=== PATIENT | female | born 2000 | race Two or more races ===

== ENCOUNTER 2023-09-29 10:28 | Emergency (ER) | payer MEDICAID, OTHER ==
[~2023-09-29] VITALS: Ht 162.6 cm; Wt 66.8 kg
[2023-09-29 10:45] VITALS: PULSE 180
[2023-09-29] MEDS: SODIUM CHLORIDE 0.9% 1,000 ML IVB ONE (10:46)
[2023-09-29] MEDS: ADENOSINE 6 MG/2 ML INJ IV ONE ×4 (10:58→10:59)
[2023-09-29 11:23] LABS: Basophils # (auto) 0.1 10 ^3/uL (0-0.2); Basophils % (auto) 0.5 % (0.0-2.0); Eosinophils # (auto) 0.1 10 ^3/uL (0-0.8); Eosinophils % (auto) 0.6 % (0.0-7.0); Hematocrit 38.1 % (36.0-46.0); Hemoglobin 13.1 g/dL (12.2-16.2); Lymphocytes # (auto) 2.7 10 ^3/uL (0.4-5.4); Lymphocytes % (auto) 21.9 % (10.0-50.0); Mean Corpuscular Hemoglobin 32.7 pg (28.0-32.0); Mean Corpuscular Hgb Conc. 34.5 g/dL (32.0-36.0); Mean Corpuscular Volume 94.9 fL (80.0-100.0); Monocytes # (auto) 0.7 10 ^3/uL (0-1.3); Monocytes % (auto) 6.2 % (0.0-12.0); Neutrophils # (auto) 8.6 10 ^3/uL (1.6-8.6); Neutrophils % (auto) 70.8 % (37.0-80.0); Nucleated Red Blood Cells % 0.1 %; Red Blood Cells 4.01 10^6/uL (4.0-5.20); Red Cell Distribution Width 13.4 % (11.8-14.3); White Blood Cell 12.1 10^3/uL (4.4-10.8)
[2023-09-29 12:10] LABS: Alanine Aminotransferase 20 U/L (7-40); Albumin 4.2 g/dL (3.2-4.8); Alkaline Phosphatase 50 U/L (46-116); Anion Gap 7 (5-15); Aspartate Aminotransferase 13 U/L (13-40); Calcium 9.4 mg/dL (8.7-10.4); Carbon Dioxide 24 mmol/L (20-30); Chloride 105 mmol/L (98-107); Glucose 91 mg/dL (74-106); Potassium 3.4 mmol/L (3.5-5.1); Sodium 136 mmol/L (136-145)
[2023-09-29 12:11] LABS: Bilirubin, Total 0.4 mg/dL (0.2-1.0); Total Protein 6.9 g/dL (5.7-8.2)
[2023-09-29 12:14] LABS: Urine Bacteria None Seen /hpf (None Seen)
[2023-09-29 12:16] LABS: BUN/Creatinine Ratio 10.9 (10.0-20.0); Blood Urea Nitrogen < 5 mg/dL (9-23)
[2023-09-29 12:43] LABS: Urine Blood Negative /uL (Negative); Urine Clarity Clear (Clear); Urine Protein, UAD Negative (Negative); Urine Specific Gravity 1.004 (1.001-1.035); Urine Urobilinogen Normal (Negative); Urine WBC 1 /hpf (0 - 5); Urine pH 7.5 (5.0-9.0)
[2023-09-29 12:46] LABS: Urine Color STRAW (Yellow)
[2023-09-29] MEDS: SODIUM CHLORIDE 0.9% 1,000 ML IV ONE (13:18)
[2023-09-29 14:02] VITALS: BP 105/61; PULSE 91; RESP 16; TEMP 98.6; O2SAT 98
== END 2023-09-29 14:08 | disposition home or self-care (01) ==
LOC: ER 10:28
DX: O99.412 Diseases of the circulatory system complicating pregnancy, second trimester (principal); I47.10 Supraventricular tachycardia, unspecified; Z3A.20 20 weeks gestation of pregnancy; Z90.49 Acquired absence of other specified parts of digestive tract
CPT/HCPCS: 36415; 80053; 81001; 84484; 85025; 93005; 96361; 96374; 99285; J0153; J7030